=== PATIENT | female | born 1995 | race African-American/Black ===

== ENCOUNTER 2020-12-28 14:44 | Emergency (ER) | payer MEDICAID, SELFPAY ==
[2020-12-28 14:47] VITALS: BP 108/61; PULSE 93; RESP 16; TEMP 37; O2SAT 98; BMI 21.7
[2020-12-28 16:04] LABS: Glucose Urine UA NEG (NEG); Leukocyte Esterase Urine TRACE (NEG); Nitrite Urine NEG (NEG); PH 7.5 (5.0-8.0); UACC Culture Trigger YES; Urine Blood NEG (NEG); Urine Ketones NEG (NEG); Urine Protein TRACE MG/DL (NEG-TRACE)
--- NOTE | 2020-12-28 16:05 | PC.NURSE ---
PT DENIES ANY LOWER BACK OR ABD PAIN, NO N/V/D. PT STATES SHE IS ONLY HERE FOR STD SYMPTOMS AND WOULD LIKE TO BE TESTED.
[2020-12-28 16:11] LABS: Color Urine YELLOW
--- NOTE | 2020-12-28 16:11 | ED.GENADULT ---
HPI - General Adult General Chief complaint: General Medical Stated complaint: female issues Time Seen by Provider: 12/28/20 14:53 Source: patient Mode of arrival: ambulatory Limitations: no limitations History of Present Illness HPI narrative: 25-year-old female is here today for complaining vaginal itch, discharge. Patient reports that she had unprotected sex one week ago. Symptoms started 3 days ago. Patient is 3 months and denies any other symptoms. Patient did not call her OBGYN provider. Patient denies abdominal or pelvic pain. She reports that the discharge is white and smelly. Related Data Allergies Allergy/AdvReac Type Severity Reaction Status Date / Time No Known Allergies Allergy Verified 12/28/20 14:50 Review of Systems Review of Systems: Constitutional : No Weight loss, No Fever, No Chills, No Night Sweats, No Fatigue, No Malaise ENT/Mouth : No Hearing loss, No Ear Pain, No Nasal Congestion, No Sinus Pain, No Hoarseness, No sore throat, No Rhinorrhea, No Swallowing Difficulty Eyes: No Eye Pain, No Swelling, No Redness, No Foreign Body, No Discharge, No Vision Changes Cardiovascular : No Chest Pain, No SOB, No Dyspnea on Exertion, No Orthopnea, No Edema, No Palpitations Respiratory : No Cough, No Sputum, No Wheezing, No Smoke Exposure, No Dyspnea Gastrointestinal : No Nausea, No Vomiting, No Diarrhea, No Constipation, No abdominal Pain, No Hematochezia, No Melena Genitourinary : no irregular bleeding, No Dysuria, No Urinary Frequency, No Hematuria, No Urinary Incontinence, No Urgency, No Flank Pain, No Urinary Flow Changes, No Hesitancy vaginal discharge and burning Musculoskeletal : No joint pain, No Myalgias, No Joint Swelling Skin : No Skin Lesions, No rash Neuro : No Weakness, No Numbness, No Paresthesias, No Loss of Consciousness, No Dizziness, No Headache Psych : No Anxiety/Panic, No Depression, No SI/HI/AH/VH, No Social Issues, Heme/Lymph: No Bruising, No Bleeding,No Lymphadenopathy Endocrine : No Polyuria, No Polydipsia, No Temperature Intolerance Yes all other systems are reviewed and are negative [facility] Social History Social History Advance Directives: No Advance Directives Information Provided: No Physical Exam Vital Signs: Vital Signs: Last Vital Signs Temp 98.6 F 12/28/20 14:47 Pulse 93 12/28/20 14:47 Resp 16 12/28/20 14:47 BP 108/61 12/28/20 14:47 Pulse Ox 98 12/28/20 14:47 Body Mass Index 21.7 Const: General: cooperative, healthy appearing and comfortable Nutritional Appearance: average body habitus Orientation/consciousness: patient oriented x3 Limitations: no limitations HENMT: Head: Yes normal to inspection Ears: hearing grossly normal bilaterally General nose exam: Normal external nose present Face and sinus: Yes normal facial exam Mouth: Normal oral and palatal mucosa present Throat: Yes posterior oropharynx normal Eyes: General: appearance normal, both eyes and all related structures Eyelids: Yes eyelids normal Conjunctivae: conjunctivae normal Sclerae: sclerae normal Pupils: Equal, round and reactive pupils present Neck: Neck: Yes normal visual inspection, Yes full ROM, Yes no lymphadenopathy, Yes trachea midline and Yes supple Thyroid: Thyroid normal Lymphatic: no lymphadenopathy noted Chest: Chest palpation & inspection: normal inspection of the chest Resp: Effort & Inspection: normal respiratory effort and able to speak in complete sentences Auscultation: clear to auscultation bilaterally Cardio: Jugular venous distension: no JVD Rate: regular rate Rhythm: regular rhythm Heart sounds: S1 normal heart sound present, S2 normal heart sound present, no gallops, no murmurs and no rubs Peripheral pulses: Peripheral pulses 2+ throughout GI: Inspection: Yes normal to inspection and No distended Palpation (GI): No hepatosplenomegaly present and No Rebound tenderness present Percussion: Yes normal to percussion Auscultation: normal bowel sounds : General: Yes no CVA tenderness External Female Exam: external swelling Speculum Exam - Vagina: abnormal vaginal discharge and erythematous Back/Spine/Pelvis: Back: no CVA tenderness Cervical Spine: cervical ROM normal and No cervical muscular tenderness Thoracic/Lumbar Spine: thoracic and lumbar spine normal to inspection Skin: General skin exam: no rashes or lesions noted, elasticity normal and turgor normal Neuro: General: patient oriented x3 Cranial nerves: Yes Equal, round and reactive pupils present Extrem: General: Yes normal to inspection, Yes full ROM and Yes capillary refill normal Psych: Appearance: grossly normal Mental Status: mental status grossly normal Speech and movement: Normal speech and movement present Affect: normal affect Attitude: cooperative Thought process: Normal thought process present Insight: Good insight present (Psych) Course Course Course Narrative: 25 years old female is here today for complaining of vaginal discharge and itching. Patient reports that she had unprotected sex 1 week ago and symptoms started yesterday. Patient denies any other symptoms. Upon exam patient has swelling and redness of her labia and white discharge. Vaginal swab for Trichomonas. Urine sent for chlamydia and gonorrhea. Patient wants to leave. She states that she will follow-up with her OBGYN tomorrow. Patient is in a marroquin to go to another appointment. I will treat her today with Flagyl ceftriaxone and azithromycin. Patient was instructed to avoid sexual contact. She was informed to return if her symptoms will get worse. Patient denies any abdominal cramping, pain or discomfort. She is 3 months and so far she had stable . I stressed the importance of staying for the antibiotics. Patient agreed. We will call her back with the results. Patient is agreeable you verbalizes understanding of instructions. She was given the opportunity to ask questions and all questions answered. Medical Decision Making Lab Data Labs: Lab Results 12/28/20 Range/Units 15:51 Urine Color YELLOW Urine Appearance HAZY Urine pH 7.5 (5.0-8.0) Ur Specific [place] 1.020 (1.005-1.025) Urine Protein TRACE (NEG-TRACE) MG/DL Urine Glucose (UA) NEG (NEG) MG/DL Urine Ketones NEG (NEG) MG/DL Urine Blood NEG (NEG) Urine Nitrite NEG (NEG) Ur Leukocyte Esterase TRACE H (NEG) Discharge Plan Discharge Clinical Impression: STI (sexually transmitted infection) Patient Disposition: Home, Self-Care Instructions: Sexually Transmitted Diseases (ED) Additional Instructions: You were seen here today for vaginal discharge. You stated that you had unprotected sex. You were given antibiotics to help protect you and the baby from further infection. If your test is positive for chlamydia or gonorrhea we will call you. Please follow-up with your configuration management analyst in 2-3 days. You may return to emergency department if your symptoms will get worse.
[2020-12-28 16:12] LABS: Appearance Urine HAZY
[2020-12-28 16:30] LABS: Bacteria Urine 1+ /LPF; RBC Urine 0-2 /HPF (0); Squamous Epithelial Cell Urine 2+ /LPF; UACC CULT YES
[2020-12-28 16:31] LABS: Amorphous Sediment Urine 3+ /LPF; Mucus Urine 1+ /LPF
[2020-12-28] MEDS: metroNIDAZOLE 500 MG TABLET 1000 MG PO (16:31)
[2020-12-28] MEDS: Azithromycin 500 MG TABLET 1000 MG PO (16:32)
[2020-12-28] MEDS: cefTRIAXone sodium 500 MG, Lidocaine HCl 1 % MPF 1 ML IM (16:34)
[2020-12-29 04:22] LABS: CT PCR NOT DETECTED (Not Detect.); NG PCR DETECTED (Not Detect.)
== END 2020-12-28 16:37 | disposition home or self-care (01) ==
PROVIDERS: Nurse Practitioner Family; Emergency Provider Emergency Medicine
DX: O98.213 Gonorrhea complicating pregnancy, third trimester (principal); A54.02 Gonococcal vulvovaginitis, unspecified; Z3A.00 Weeks of gestation of pregnancy not specified
CPT/HCPCS: 81001; 87086; 87491; 87591; 96372; 99283; 99284; J0696